=== PATIENT | male | born 1960 | race Caucasian/White ===

== ENCOUNTER 2018-04-07 18:13 | Emergency (ER) | payer BC ==
[2018-04-07] MEDS ORDERED: FLUORESCEIN SODIUM 0.6 MG/WRAP ONE (19:45)
[2018-04-07] MEDS ORDERED: TETRACAINE HCL 0.5% 2ML OPTH ONE (19:45)
--- NOTE | 2018-04-07 20:00 | EDPHYS ---
Physician Documentation [facility] Name: Brie Watson Age: 57 yrs Sex: Male : 1960 Arrival Date: 04/07/2018 Time: 18:15 Bed 14 Private MD: None, None ED Physician Dario Moore HPI: 04/07 19:50 This 57 yrs old Male presents to ER via Ambulatory with complaints of Eye gs Problem. 19:50 The patient is experiencing pain, redness, The patient sustained an abrasion, to the gs right eye, caused by toilet paper box. Onset: The symptoms/episode began/occurred today. Duration: the symptoms are continuous. Aggravated by blinking, closing eye. Associated signs and symptoms: Pertinent negatives: chills, dizziness. Severity of symptoms: At their worst the symptoms were moderate in the emergency department the symptoms are unchanged. The patient has experienced similar episodes in the past, a few times. Historical: - Allergies: 18:44 No Known Allergies; jl7 - PMHx: 18:44 Diabetes - IDDM; Hypertension; Hypothyroidism; jl7 - PSHx: 18:44 Appendectomy; jl7 - Immunization history:: Adult Immunizations up to date. - Social history:: Smoking status: Patient/guardian denies using tobacco. - Ebola Screening: : No symptoms or risks identified at this time. ROS: 19:50 All other systems are negative. gs Exam: 19:50 Head/Face: Normocephalic, atraumatic. ENT: Nares patent. No nasal discharge, no gs septal abnormalities noted. Tympanic membranes are normal and external auditory canals are clear. Oropharynx with no redness, swelling, or masses, exudates, or evidence of obstruction, uvula midline. Mucous membranes moist. Neck: Trachea midline, no thyromegaly or masses palpated, and no cervical lymphadenopathy. Supple, full range of motion without nuchal rigidity, or vertebral point tenderness. No Meningismus. Cardiovascular: Regular rate and rhythm with a normal S1 and S2. No gallops, murmurs, or rubs. Normal PMI, no JVD. No pulse deficits. Respiratory: Lungs have equal breath sounds bilaterally, clear to auscultation and percussion. No rales, rhonchi or wheezes noted. No increased work of breathing, no retractions or nasal flaring. Skin: Warm, dry with normal turgor. Normal color with no rashes, no lesions, and no evidence of cellulitis. 19:50 Eyes: Periorbital structures: appear normal, Pupils: no acute changes, Extraocular movements: no acute changes, Corneas: abrasion, that is large, approximately 3 mm(s), on the right, at 6 o'clock, foreign body, is not appreciated, a fluorescein strip employed to appreciate the findings, Anterior chamber: normal. Vital Signs: 18:44 BP 114 / 80; Pulse 7; Resp 16 S; Temp 98.2(O); Pulse Ox 98% on R/A; Weight 95.25 kg jl7 (R); Height 5 ft. 7 in. (170.18 cm) (R); Pain 7/10; 19:41 Pulse 72; Resp 16; Temp 98.3; Pulse Ox 98% on R/A; ak1 18:44 Body Mass Index 32.89 (95.25 kg, 170.18 cm) jl7 MDM: 19:32 Patient medically screened. 19:50 Differential diagnosis: Corneal abrasion of Corneal ulcer of Foreign body in Acute gs iritis of. Data reviewed: vital signs, nurses notes. 04/07 19:35 Order name: Eye Tray; Complete Time: 19:41 04/07 19:35 Order name: Fluoresene Opth strip; Complete Time: 19:41 Administered Medications: 19:49 Drug: Tetracaine Drops 0.5 % 1 drops {Note: placed at bedside for ERP to use.} Route: ak1 Ophthalmic; Site: right eye; Disposition: 04/07/18 20:00 Discharged to Home. Impression: Injury of conjunctiva and corneal abrasion without foreign body, right eye. - Condition is Stable. - Prescriptions for Ocuflox 0.3 % Ophthalmic Drops - instill 2 drops by OPHTHALMIC route every 6 hours for 2 days; 5 milliliter. Acular 0.5 % Ophthalmic Drops - instill 1 drop by OPHTHALMIC route every 6 hours into affected eye(s); 5 milliliter. Erythromycin 5 mg/gram (0.5 %) Ophthalmic Ointment - apply 1 ribbon by OPHTHALMIC route At bedtime; 1 tube. - Medication Reconciliation Form, Thank You Letter, Antibiotic Education, Prescription Opioid Use form. - Follow up: Yury Robin MD; When: 2 - 3 days; Reason: Re-evaluation by your physician. Signatures: Drea Rothman RN RN ak1 Natty Bianchi RN RN jl7 Dario Moore MD MD gs Corrections: (The following items were deleted from the chart) 20:12 20:00 04/07/2018 20:00 Discharged to Home. Impression: Injury of conjunctiva and ak1 corneal abrasion without foreign body, right eye. Condition is Stable. Forms are Medication Reconciliation Form, Thank You Letter, Antibiotic Education, Prescription Opioid Use. Follow up: Yury Robin; When: 2 - 3 days; Reason: Re-evaluation by your physician. gs
--- NOTE | 2018-04-07 20:00 | ER ---
Nurse's Notes [facility] Name: Brie Watson Age: 57 yrs Sex: Male : 1960 Arrival Date: 04/07/2018 Time: 18:15 Bed 14 Private MD: None, None Diagnosis: Injury of conjunctiva and corneal abrasion without foreign body, right eye Presentation: 04/07 18:41 Presenting complaint: Patient states: A box fell and hit my in my right eye at about 11 jl7 this morning. Still feels scratchy. Feels like a corneal abrasion. Transition of care: patient was not received from another setting of care. Onset of symptoms was April 07, 2018 at 11:00. Risk Assessment: Do you want to hurt yourself or someone else? Patient reports no desire to harm self or others. Initial Sepsis Screen: Does the patient meet any 2 criteria? No. Patient's initial sepsis screen is negative. Does the patient have a suspected source of infection? No. Patient's initial sepsis screen is negative. Care prior to arrival: None. 18:41 Method Of Arrival: Ambulatory [facility] 18:41 Acuity: MELLY 4 jl7 Triage Assessment: 19:42 General: Appears in no apparent distress. uncomfortable, Behavior is calm, cooperative. ak1 Pain: Complains of pain in right eye. EENT: Reports box fell from top shelf hitting pt in right eye. . Neuro: No deficits noted. Cardiovascular: No deficits noted. Respiratory: No deficits noted. GI: No signs and/or symptoms were reported involving the gastrointestinal system. : No signs and/or symptoms were reported regarding the genitourinary system. Derm: No signs and/or symptoms reported regarding the dermatologic system. Musculoskeletal: No signs and/or symptoms reported regarding the musculoskeletal system. Historical: - Allergies: 18:44 No Known Allergies; jl7 - PMHx: 18:44 Diabetes - IDDM; Hypertension; Hypothyroidism; jl7 - PSHx: 18:44 Appendectomy; jl7 - Immunization history:: Adult Immunizations up to date. - Social history:: Smoking status: Patient/guardian denies using tobacco. - Ebola Screening: : No symptoms or risks identified at this time. Screenin:19 Abuse screen: Denies threats or abuse. Denies injuries from another. Nutritional ak1 screening: No deficits noted. Tuberculosis screening: No symptoms or risk factors identified. Fall Risk None identified. Vital Signs: 18:44 BP 114 / 80; Pulse 7; Resp 16 S; Temp 98.2(O); Pulse Ox 98% on R/A; Weight 95.25 kg jl7 (R); Height 5 ft. 7 in. (170.18 cm) (R); Pain 7/10; 19:41 Pulse 72; Resp 16; Temp 98.3; Pulse Ox 98% on R/A; ak1 18:44 Body Mass Index 32.89 (95.25 kg, 170.18 cm) jl7 ED Course: 18:15 Patient arrived in ED. sb2 18:15 None, None is Private Physician. sb2 18:42 Triage completed. jl7 18:45 Arm band placed on right wrist. jl7 19:03 Dario Moore MD is Attending Physician. 19:18 Drea Rothman RN is Primary Nurse. ak1 19:42 Patient has correct armband on for positive identification. Bed in low position. Call ak1 light in reach. Side rails up X 1. Adult w/ patient. 19:55 Yury Robin MD is Referral Physician. gs 20:12 No provider procedures requiring assistance completed. Patient did not have IV access ak1 during this emergency room visit. Administered Medications: 19:49 Drug: Tetracaine Drops 0.5 % 1 drops {Note: placed at bedside for ERP to use.} Route: ak1 Ophthalmic; Site: right eye; Outcome: 19:42 Condition: good ak1 20:00 Discharge ordered by . gs 20:12 Discharged to home ambulatory, with family. ak1 20:12 Discharge instructions given to patient, Instructed on discharge instructions, follow up and referral plans. medication usage, Demonstrated understanding of instructions, follow-up care, medications, Prescriptions given X 3. 20:12 Patient left the ED. ak1 Signatures: Drea Rothman RN RN ak1 Natty Bianchi RN RN jl7 Dario Moore MD MD Yahaira Rosales sb2 Corrections: (The following items were deleted from the chart) 18:45 18:41 Presenting complaint: Patient states: A box fell and hit my in my eye at about 11 jl7 this morning. Still feels scratchy. Feels like a corneal abrasion. jl7
== END 2018-04-07 20:12 | disposition home or self-care (01) ==
LOC: ER 18:13
DX: S05.01XA Injury of conjunctiva and corneal abrasion without foreign body, right eye, initial encounter (principal); W45.8XXA Other foreign body or object entering through skin, initial encounter; Y93.9 Activity, unspecified; Y92.89 Other specified places as the place of occurrence of the external cause; I10 Essential (primary) hypertension
CPT/HCPCS: 99283

== ENCOUNTER → 2023-08-16 | Emergency (ER) | payer BC ==
[~2023-08-16] MED LIST: NA CHLORIDE 0.9% 1,000 ML ONE; POTASSIUM 25 MEQ EFFERV TAB ONE
[2023-08-16 18:22] LABS: Absolute Lymphocytes (CBC) 1.5 K/uL (0.7-4.9); Hematocrit 39.2 % (39.6-49.0); Lymphocytes % 16.2 % (15.3-44.8); MCV 92.3 fL (80-100); MPV 8.2 fL (7.6-11.3); Platelets 168 thou/uL (152-406); RBC Red Blood Cell Count 4.25 M/uL (4.33-5.43)
[2023-08-16 18:37] LABS: Protime INR 1.03
[2023-08-16 18:54] LABS: Albumin 3.2 g/dL (3.4-5.0); Bilirubin Direct 0.1 mg/dL (0-0.2); Bilirubin Indirect, Calculated 0.4 mg/dL (0.2-0.8); Bilirubin Total 0.5 mg/dL (0.2-1.0); Magnesium 2.1 mg/dL (1.6-2.4); Potassium 2.8 mEq/L (3.5-5.1); Protein, Total 7.1 g/dL (6.4-8.2); Troponin High Sensitivity 5.4 pg/mL (<58.9)
--- NOTE | 2023-08-16 18:54 | RAD REPORT ---
[facility] 6[facility]11 [facility] CLINICAL HISTORY: Congestion;Chest pain COMPARISON: CHEST SINGLE VIEW dated 03/11/2009 TECHNIQUE: Portable AP view of the chest. FINDINGS: The lungs are clear. No pneumothorax or effusion. The cardiomediastinal contours are unre markable. IMPRESSION: No acute cardiopulmonary process.
--- NOTE | 2023-08-16 19:04 | RAD REPORT ---
EXAM DESCRIPTION: CT - Head Brain Wo Cont - 08/16/2023 6:39 pm CLINICAL HISTORY: TRAUMA COMPARISON: HEAD BRAIN W O CONTRAST dated 03/11/2009 TECHNIQUE: Noncontrast head CT images were obtained without IV contrast. Multiplanar reformats were generated and reviewed. All CT scans are performed using dose optimization technique as appropriate and may include automated exposure control or mA/KV adjustment according to patient size. FINDINGS: No intracranial hemorrhage, mass, or edema. Midline structures are unremarkable. Normal ventricular caliber for age. Keith-white matter differentiation is preserved, without evidence of acute infarct. No abnormal extra- axial fluid collections. Mastoid air cells are well aerated. Patchy opacification throughout the ethmoidal sinuses with small left maxillary sinus air-fluid level. No acute bony findings. IMPRESSION: No evidence of an acute intracranial process. Inflammatory paranasal sinus disease as above.
--- NOTE | 2023-08-16 20:31 | EDPHYS ---
Physician Documentation [facility] Name: Brie Watson Age: 62 yrs Sex: Male : 1960 Arrival Date: 08/16/2023 Time: 17:30 Bed 9 Private MD: ED Physician Duncan Robert HPI: 08/16 17:54 This 62 yrs old Male presents to ER via EMS with complaints of Syncope. sb4 17:56 Patient reports feeling sick for about a week now. He initially had cough, body aches, sb4 fever so PCP called him and Tamiflu. He states that all of his symptoms have resolved besides a cough. He states that about 1 week ago, he had a coughing fit that made him short of breath and caused him to have a syncopal episode. He states that this occurred again tonight and he fell and hit the back of his head sustaining a laceration. Historical: - Allergies: 17:44 No Known Allergies; cp4 - PMHx: 17:44 Diabetes - IDDM; Hypertension; Hypothyroidism; cp4 - Immunization history:: Adult Immunizations up to date. - Social history:: Smoking status: Patient denies any tobacco usage or history of. ROS: 17:56 Constitutional: Negative for fever, chills, and weight loss, sb4 17:56 Respiratory: Positive for cough, 17:56 Skin: Positive for laceration(s), 17:56 Neuro: Positive for headache, syncope, 17:56 All other systems are negative, Exam: 17:56 Constitutional: This is a well developed, well nourished patient who is awake, alert, sb4 and in no acute distress. Head/Face: Normocephalic, atraumatic. Eyes: Extra-ocular motions intact. Periorbital areas with no swelling, redness, or edema. ENT: Mucous membranes moist. Cardiovascular: Regular rate and rhythm with a normal S1 and S2. Respiratory: Lungs have equal breath sounds bilaterally, clear to auscultation and percussion. No rales, rhonchi or wheezes noted. No increased work of breathing, no retractions or nasal flaring. Abdomen/GI: Soft, non-tender, no distension. MS/ Extremity: Pulses equal, no cyanosis. Neurovascular intact. Full, normal range of motion. Neuro: Awake and alert, GCS 15, oriented to person, place, time, and situation. Motor strength 5/5 in all extremities. Sensory grossly intact. 17:56 Skin: injury, laceration(s), the wound is approximately 2 cm(s), of the occipital area, Vital Signs: 17:42 BP 120 / 65; Pulse 77; Resp 18; Temp 98.1; Pulse Ox 100% ; cp4 18:25 BP 126 / 64 LA Supine (man/lg); Pulse 75; cp4 18:25 BP 129 / 66 LA Sitting (auto/lg); Pulse 76; cp4 18:25 BP 109 / 70 LA Standing (auto/lg); Pulse 79; cp4 MDM: 17:39 Patient medically screened. sb4 17:58 Differential Diagnosis: cardiac arrhythmia, cerebrovascular accident, hypoxia, sb4 bronchitis, pneumonia, orthostatic hypotension. 20:29 Data reviewed: vital signs, nurses notes, lab test result(s), radiologic studies, I sb4 have discussed the patient's presentation/case with the attending Emergency Department Physician; and as a result, I will discharge patient. Historians other than the Patient: Spouse/Significant Other: . Counseling: I had a detailed discussion with the patient and/or guardian regarding the historical points, exam findings, and any diagnostic results supporting the discharge/admit diagnosis, lab results, radiology results, to return to the emergency department if symptoms worsen or persist or if there are any questions or concerns that arise at home. 08/16 17:53 Order name: Basic Metabolic Panel; Complete Time: 18:55 sb4 08/16 17:53 Order name: CBC with Diff; Complete Time: 18:31 sb4 08/16 17:53 Order name: Hepatic Function; Complete Time: 18:55 sb4 08/16 17:53 Order name: Magnesium; Complete Time: 18:55 sb4 08/16 17:53 Order name: Protime (+inr); Complete Time: 18:39 sb4 08/16 17:53 Order name: Ptt, Activated; Complete Time: 18:39 sb4 08/16 17:53 Order name: Troponin High Sensitivity; Complete Time: 18:55 sb4 08/16 17:53 Order name: CT Head Brain wo Cont; Complete Time: 19:09 sb4 08/16 17:53 Order name: Chest Single View XRAY; Complete Time: 18:55 sb4 08/16 17:53 Order name: EKG; Complete Time: 17:54 sb4 08/16 17:53 Order name: Cardiac monitoring; Complete Time: 18:06 sb4 08/16 17:53 Order name: EKG - Nurse/Tech; Complete Time: 20:48 sb4 08/16 17:53 Order name: IV Saline Lock; Complete Time: 18:17 sb4 08/16 17:53 Order name: Labs collected and sent; Complete Time: 18:17 sb4 08/16 17:53 Order name: O2 Per Protocol; Complete Time: 18:06 sb4 08/16 17:53 Order name: O2 Sat Monitoring; Complete Time: 18:06 sb4 08/16 17:53 Order name: Orthostatics; Complete Time: 18:25 sb4 Administered Medications: 19:56 Drug: NS 0.9% IV 1000 ml IV at 1 bolus Per protocol; 1000 mL bolus Route: IV; Rate: 1 me1 bolus; Site: right antecubital; 20:49 Follow up: IV Status: Completed infusion; IV Intake: 1000ml bp 19:56 Drug: Potassium PO Effervescent Tablet 50 mEq PO once; dissolve in 4 ounces of water or me1 juice Route: PO; 20:38 Follow up: Response: No adverse reaction me1 Point of Care Testing: Blood Glucose: 17:44 Blood Glucose: 131 mg/dL; cp4 Ranges: Critical Glucose Levels:Adult <50 mg/dl or >400 mg/dl <40 mg/dl or >180 mg/dl Disposition: 21:11 Co-signature as Attending Physician, Duncan Robert MD I agree with the assessment and kdr plan of care. Disposition Summary: 08/16/23 20:30 Discharge Ordered Notes: Location: Home sb4 Problem: new sb4 Symptoms: have improved sb4 Condition: Stable sb4 Diagnosis - Acute ethmoidal sinusitis sb4 - Laceration without foreign body of scalp sb4 - Acute bronchitis, unspecified sb4 - Hypokalemia sb4 Followup: sb4 - With: Emergency Department - When: As needed - Reason: Trouble breathing, Worsening of condition Discharge Instructions: - Discharge Summary Sheet sb4 - Acute Bronchitis, Adult sb4 - Potassium Content of Foods sb4 - Sinusitis, Adult, [id number] sb4 - Hypokalemia sb4 - Facial or Scalp Contusion, [id number] sb4 Forms: - Medication Reconciliation Form sb4 - Thank You Letter sb4 - Antibiotic Education sb4 - Prescription Opioid Use sb4 - Patient Portal Instructions sb4 - Leadership Thank You Letter sb4 Prescriptions: - Augmentin 875-125 mg Oral Tablet - take 1 tablet ORAL route every 12 hours for 10 days; 20 tablet; Refills: 0, sb4 Product Selection Permitted - Tessalon Perles 100 mg Oral Capsule - take 1 capsule ORAL route every 8 hours As needed; 15 capsule; Refills: 0, sb4 Product Selection Permitted - Prednisone 20 mg Oral Tablet - take 2 tablets ORAL route once daily for 5 days; 10 tablet; Refills: 0, Product sb4 Selection Permitted Signatures: Dispatcher [employer] EDDuncan Calixto MD MD kdr Brown, Sophia, PA-C PAIban sb4 Ana Mc RN RN me1 Diana Salvador cp4 Tyler Pierce RN bp Corrections: (The following items were deleted from the chart) 17:59 17:58 Differential Diagnosis: cardiac arrhythmia, cerebrovascular accident, hypoxia, sb4 bronchitis, pneumonia, sb4
--- NOTE | 2023-08-16 20:31 | ER ---
Nurse's Notes [facility] Name: Brie Watson Age: 62 yrs Sex: Male : 1960 Arrival Date: 08/16/2023 Time: 17:30 Bed 9 Private MD: Diagnosis: Acute ethmoidal sinusitis;Laceration without foreign body of scalp;Acute bronchitis, unspecified;Hypokalemia Presentation: 08/16 17:42 Chief complaint: EMS states: syncopal episode after coughing. Has small cut to the back cp4 on the head. Coronavirus screen: Vaccine status: Client denies travel out of the [place] in the last 14 days. At this time, the client does not indicate any symptoms associated with coronavirus-19. Ebola Screen: Patient negative for fever greater than or equal to 101.5 degrees Fahrenheit, and additional compatible Ebola Virus Disease symptoms Patient denies exposure to infectious person. Patient denies travel to an Ebola-affected area in the 21 days before illness onset. No symptoms or risks identified at this time. Initial Sepsis Screen: Does the patient meet any 2 criteria? No. Patient's initial sepsis screen is negative. Does the patient have a suspected source of infection? No. Patient's initial sepsis screen is negative. Risk Assessment: Do you want to hurt yourself or someone else? Patient reports no desire to harm self or others. Onset of symptoms was August 16, 2023. 17:42 Method Of Arrival: EMS: [facility] cp4 17:42 Acuity: MELLY 3 cp4 Triage Assessment: 17:44 General: Appears in no apparent distress. Behavior is calm, cooperative, appropriate cp4 for age. Pain: Denies pain. Neuro: No deficits noted. Reports a syncopal episode. Historical: - Allergies: 17:44 No Known Allergies; cp4 - PMHx: 17:44 Diabetes - IDDM; Hypertension; Hypothyroidism; cp4 - Immunization history:: Adult Immunizations up to date. - Social history:: Smoking status: Patient denies any tobacco usage or history of. Screenin:45 [facility] ED Fall Risk Assessment (Adult) History of falling in the last 3 months, cp4 including since admission Yes- single mechanical fall (1 pt) Confusion or Disorientation No (0 pts) Intoxicated or Sedated No (0 pts) Impaired Gait No (0 pts) Mobility Assist Device Used No (0 pt) Altered Elimination No (0 pt) Score/Fall Risk Level 0 - 2 = Low Risk Oriented to surroundings, Maintained a safe environment, Educated pt \T\ family on fall prevention, incl call for assistance when getting out of bed, Assessed \T\ reinforced patient's understanding of fall precautions, Hourly rounding (assess needs \T\ fall precautionary measures) done. Abuse screen: Denies threats or abuse. Nutritional screening: No deficits noted. Tuberculosis screening: No symptoms or risk factors identified. Assessment: 17:45 Reassessment: No changes from previously documented assessment. Neuro: Level of cp4 Consciousness is awake, alert, obeys commands, Oriented to person, place, time, situation, Appropriate for age Quiller Tender are equal bilaterally Moves all extremities. Gait is steady, Speech is normal, Facial symmetry appears normal, Pupils are PERRLA, Intact. Cardiovascular: No deficits noted. Rhythm is sinus rhythm. Vital Signs: 17:42 BP 120 / 65; Pulse 77; Resp 18; Temp 98.1; Pulse Ox 100% ; cp4 18:25 BP 126 / 64 LA Supine (man/lg); Pulse 75; cp4 18:25 BP 129 / 66 LA Sitting (auto/lg); Pulse 76; cp4 18:25 BP 109 / 70 LA Standing (auto/lg); Pulse 79; cp4 ED Course: 17:37 Patient arrived in ED. sp 17:39 Brigette Brown PA-C [facility]. sb4 17:39 Duncan Robert MD is Attending Physician. sb4 17:42 Diana Salvador is Primary Nurse. cp4 17:44 Triage completed. cp4 17:44 Arm band placed on right wrist. Patient placed in the treatment room, on a stretcher. cp4 17:45 Bed in low position. Call light in reach. Side rails up X2. cp4 17:45 No provider procedures requiring assistance completed. cp4 18:13 Chest Single View XRAY In Process Unspecified. EDMS 18:18 Basic Metabolic Panel Sent. cp4 18:18 CBC with Diff Sent. cp4 18:18 Hepatic Function Sent. cp4 18:18 Magnesium Sent. cp4 18:18 Protime (+inr) Sent. cp4 18:18 Ptt, Activated Sent. cp4 18:18 Troponin High Sensitivity Sent. cp4 18:18 Inserted saline lock: 20 gauge in right antecubital area, using aseptic technique. cp4 Blood collected. 18:41 CT Head Brain wo Cont In Process Unspecified. EDMS 20:48 IV discontinued, intact, bleeding controlled, No redness/swelling at site. Pressure bp dressing applied. 20:49 Provided Education on: N/A. bp Administered Medications: 19:56 Drug: NS 0.9% IV 1000 ml IV at 1 bolus Per protocol; 1000 mL bolus Route: IV; Rate: 1 me1 bolus; Site: right antecubital; 20:49 Follow up: IV Status: Completed infusion; IV Intake: 1000ml bp 19:56 Drug: Potassium PO Effervescent Tablet 50 mEq PO once; dissolve in 4 ounces of water or me1 juice Route: PO; 20:38 Follow up: Response: No adverse reaction me1 Medication: 17:45 VIS not applicable for this client. cp4 Point of Care Testing: Blood Glucose: 17:44 Blood Glucose: 131 mg/dL; cp4 Ranges: Intake: 20:49 IV: 1000ml; Total: 1000ml. bp Outcome: 20:30 Discharge ordered by . sb4 20:48 Discharged to home ambulatory, with family, bp 20:48 Condition: stable 20:48 Discharge instructions given to patient, Instructed on discharge instructions, follow up and referral plans. medication usage, Demonstrated understanding of instructions, follow-up care, medications, Prescriptions given X 2, 20:49 Patient left the ED. bp Signatures: Dispatcher [employer] EDVT Lucía Vazquez Brian, RN RN Brigette Berumen PAIban PAIban sb4 Ana Mc, MAIRA RN ny1 Diana Salvaodr cp4
[2023-08-16 21:45] VITALS: TEMP 98.1; O2SAT 100
[2023-08-16 21:51] VITALS: BP 109/70
== END ==
LOC: ER 17:30
DX: J01.20 Acute ethmoidal sinusitis, unspecified (principal); J20.9 Acute bronchitis, unspecified; S01.01XA Laceration without foreign body of scalp, initial encounter; E87.6 Hypokalemia; E11.9 Type 2 diabetes mellitus without complications; I10 Essential (primary) hypertension
CPT/HCPCS: 85025; 80048; 36415; 83735; 85610; 80076; 85730; 84484; 70450; 71045; 96360; 99284; J7030